=== PATIENT | female | born 1950 | race Caucasian/White ===

== ENCOUNTER 2018-03-09 07:56 | Day surgery (SDC) | payer OTHER | END 2018-03-09 12:35 | disposition home or self-care (01) | LOC: AMB-ENDOS 07:56 | DX: D12.3 Benign neoplasm of transverse colon (principal) ==

== ENCOUNTER 2018-04-19 10:15 | Inpatient (IN) | payer OTHER ==
[~2018-04-19] VITALS: Ht 162.6 cm; Wt 72.6 kg
[2018-04-30] MEDS ORDERED: OXYC1TAB9 PO (07:58)
[2018-04-30] MEDS ORDERED: CARAFATE1 GM PO (07:58)
[2018-04-30] MEDS ORDERED: INTESTINEX680 M1 PO (07:59)
== END 2018-04-30 09:33 | disposition home or self-care (01) | DRG 331 ==
LOC: ADM 10:15 → EDSTATUS 10:15 → SURH 04-26 07:00 → O/R 04-26 09:33 → SURH 04-26 09:33
PROVIDERS: Surgery
PROC: 0DTP4ZZ Resection of Rectum, Percutaneous Endoscopic Approach (ICD-10-PCS; 2018-04-26)
PROC: 07TC4ZZ Resection of Pelvis Lymphatic, Percutaneous Endoscopic Approach (ICD-10-PCS; 2018-04-26)
PROC: 0D1M4Z4 Bypass Descending Colon to Cutaneous, Percutaneous Endoscopic Approach (ICD-10-PCS; principal; 2018-04-26 07:00)
DX: C20 Malignant neoplasm of rectum (principal); R59.0 Localized enlarged lymph nodes

== ENCOUNTER 2018-05-07 18:58 | Inpatient (IN) | payer OTHER ==
[~2018-05-07] VITALS: Ht 165.1 cm; Wt 68.0 kg
[~2018-05-07 18:58] MED LIST: CARAFATE1 GM PO; INTESTINEX680 M1 PO; OXYC1TAB9 PO
[2018-05-07] MEDS ORDERED: INTESTINEX680 M1 (19:39)
[2018-05-07] MEDS ORDERED: PERCOCET 5-3251 EACH (19:39)
[2018-05-07] MEDS ORDERED: CARAFATE1 GM/10 ML (19:40)
[2018-05-12] MEDS ORDERED: OXYC1TAB9 PO (08:11)
[2018-05-12] MEDS ORDERED: AMOX1TAB5 PO (08:12)
[2018-05-12] MEDS ORDERED: LEVSIN/SL0.125 MG SL (08:12)
== END 2018-05-12 10:58 | disposition home health service (06) | DRG 389 ==
LOC: ER 18:58 → SURG 05-08 09:20
PROC: 3E0336Z Introduction of Nutritional Substance into Peripheral Vein, Percutaneous Approach (ICD-10-PCS; principal; 2018-05-08)
DX: K91.31 Postprocedural partial intestinal obstruction (principal); C20 Malignant neoplasm of rectum; T81.40XA Infection following a procedure, unspecified, initial encounter; Z93.3 Colostomy status; B95.61 Methicillin susceptible Staphylococcus aureus infection as the cause of diseases classified elsewhere; Y83.3 Surgical operation with formation of external stoma as the cause of abnormal reaction of the patient, or of later complication, without mention of misadventure at the time of the procedure

== ENCOUNTER 2019-05-10 05:47 | Day surgery (SDC) | payer OTHER ==
[~2019-05-10 05:47] MED LIST changes: +AMOX1TAB5 PO; +CARAFATE1 GM/10 ML; +INTESTINEX680 M1; +LEVSIN/SL0.125 MG SL; +PERCOCET 5-3251 EACH
== END 2019-05-10 09:34 | disposition home or self-care (01) ==
LOC: AMB-ENDOS 05:47
DX: K43.5 Parastomal hernia without obstruction or gangrene (principal)

== ENCOUNTER 2020-08-14 08:38 | Day surgery (SDC) | payer OTHER | END 2020-08-14 14:48 | disposition home or self-care (01) | LOC: AMB-ENDOS 08:38 | PROVIDERS: ATTEND Surgery | DX: D12.3 Benign neoplasm of transverse colon (principal); Z20.828 Contact with and (suspected) exposure to other viral communicable diseases; Z93.3 Colostomy status; K43.5 Parastomal hernia without obstruction or gangrene ==

== ENCOUNTER → 2021-09-10 07:52 | Outpatient (CLI) | payer OTHER | END | disposition home or self-care (01) | LOC: NUCLEAR 07:52 | PROVIDERS: ATTEND Internal Medicine Cardiovascular Disease | DX: K80.20 Calculus of gallbladder without cholecystitis without obstruction (principal) | CPT/HCPCS: 78227; A9537; J2805 ==